=== PATIENT | male | born 1960 | race Caucasian/White ===

== ENCOUNTER → 2022-02-11 08:40 | Outpatient (BNVA) | payer OTHER, SELFPAY | PROVIDERS: Visit Provider Physician Assistant Medical | DX: M23.92 Unspecified internal derangement of left knee (principal) | CPT/HCPCS: 73564; 99203 ==

== ENCOUNTER → 2022-02-21 13:08 | Outpatient (BNVA) | payer OTHER, SELFPAY | PROVIDERS: Visit Provider Physician Assistant Medical | DX: M23.92 Unspecified internal derangement of left knee (principal); M25.562 Pain in left knee | CPT/HCPCS: 99213 ==

== ENCOUNTER → 2022-03-11 14:56 | Outpatient (BNVA) | payer OTHER, SELFPAY | PROVIDERS: Visit Provider Physician Assistant Medical | DX: M23.92 Unspecified internal derangement of left knee (principal) | CPT/HCPCS: 99213 ==

== ENCOUNTER 2022-03-11 15:00 | Outpatient (RCR) | payer OTHER, BC, SELFPAY ==
--- NOTE | 2022-02-14 16:08 | MHC.PT.EP ---
[facility] [place] Office [place] Office [place] Office [address] Eduard Turner [address] [phone] F: [phone] F: [phone] F: [phone] F: [phone] Physical Therapy Plan of Care Date of Evaluation: Date of Surgery: N/A Diagnosis: L knee internal derangement (RC) Assessment: pt is a 62 y/o female presenting to physical therapy w/ referring diagnosis of L knee derangement. pt's signs and symptoms consistent w/ MCL sprain and quadriceps tendon sprain. Impairments include pain, decreased range of motion, decreased strength, impaired functional mobility, impaired postural awareness, and altered ambulation mechanics. pt is a good candidate for skilled PT due to age, potential remediation of impairments, typical disease/condition progression and prognosis, comorbidities, and motivation. pt would benefit from skilled PT intervention to provide a tailored strengthening and stretching exercise program, functional training, gait training, postural re-training, neuromuscular re-education, modalities as needed for pain, equipment safety demonstration. Frequency and Duration: The patient will be seen 2x/wk for 5 wks Short Term Goals: pt will be I w/ HEP to promote self-management of condition. pt will improve L knee flexion by 10 degrees to promote ease in kneeling at work. 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 Treatment Plan: Modalities to reduce pain, spasms and effusion. Manual therapy to restore motion and function. Therapeutic exercise to improve strength and flexibility. Neuromuscular re-education for posture and balance. Therapeutic activities to return to functional activities of daily living. Electronically signed by: Ema Dunlap PT, DPT Please sign and return to therapist. Thank you for your referral.
--- NOTE | 2022-03-20 18:00 | MHC.PT.EP ---
[facility] [place] Office [place] Office [place] Office [address] Eduard Turner [address] [phone] F: [phone] F: [phone] F: [phone] F: [phone] Physical Therapy Plan of Care Date of Evaluation: Date of Surgery: N/A Diagnosis: L knee internal derangement (RC) Assessment: pt is a 62 y/o female presenting to physical therapy w/ referring diagnosis of L knee derangement. pt's signs and symptoms consistent w/ MCL sprain and quadriceps tendon sprain. Impairments include pain, decreased range of motion, decreased strength, impaired functional mobility, impaired postural awareness, and altered ambulation mechanics. pt is a good candidate for skilled PT due to age, potential remediation of impairments, typical disease/condition progression and prognosis, comorbidities, and motivation. pt would benefit from skilled PT intervention to provide a tailored strengthening and stretching exercise program, functional training, gait training, postural re-training, neuromuscular re-education, modalities as needed for pain, equipment safety demonstration. Frequency and Duration: The patient will be seen 2x/wk for 5 wks Short Term Goals: STG's Met Mcc Goals: LTG Met for improved LEFS and strength 5/5 Flex and Ext Treatment Plan: Modalities to reduce pain, spasms and effusion. Manual therapy to restore motion and function. Therapeutic exercise to improve strength and flexibility. Neuromuscular re-education for posture and balance. Therapeutic activities to return to functional activities of daily living. Electronically signed by: Ema Dunlap PT, DPT Please sign and return to therapist. Thank you for your referral.
== END 2022-03-20 18:00 | disposition home or self-care (01) ==
LOC: HO.PT 15:00
PROVIDERS: Visit Provider Physician Assistant Medical
DX: M23.92 Unspecified internal derangement of left knee (principal); M25.562 Pain in left knee
CPT/HCPCS: 97110; 97161

== ENCOUNTER 2022-04-16 09:07 | Outpatient (REF) | payer BC, SELFPAY ==
--- NOTE | ~2022-04-16 | XR_ITS ---
EXAMINATION: XR HAND, RIGHT CLINICAL INFORMATION: Right hand pain. COMPARISON: 04/02/2022 TECHNIQUE: PA, lateral, and oblique views of the right hand. FINDINGS: There appears to be a 1 mm bony density about the dorsal radial aspect of the 1st metacarpophalangeal joint consistent with small avulsion injury. No dislocation is evident. No significant soft tissue swelling is seen. I cannot tell whether this is an acute or remote injury. There is an exostosis seen about the distal 4th proximal phalanx. 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 There is some degenerative change involving the 2nd and 3rd distal interphalangeal joints. XR/XR hand RT min 3V IMPRESSION: 1 mm bony density adjacent to the first metacarpophalangeal joint which likely represents sequela of previous injury. Exostosis distal 4th proximal phalanx.
== END 2022-04-16 09:08 | disposition home or self-care (01) ==
LOC: HO.HOSX 09:07
PROVIDERS: Visit Provider Orthopaedic Surgery
DX: S60.011A Contusion of right thumb without damage to nail, initial encounter (principal); S69.91XA Unspecified injury of right wrist, hand and finger(s), initial encounter
CPT/HCPCS: 73130; 99202

== ENCOUNTER 2022-06-20 20:38 | Emergency (ER) | payer BC, SELFPAY ==
--- NOTE | ~2022-06-20 | XR_ITS ---
EXAMINATION: XR ANKLE, RIGHT CLINICAL INFORMATION: Injury COMPARISON: None TECHNIQUE: AP, lateral, and mortise views of the right ankle. FINDINGS: Mild soft tissue swelling laterally. Bones are normal anatomic alignment with no acute fracture or dislocation. No periosteal reaction or bony erosion. Degenerative changes with osteophyte formation are seen medially and there is a small calcaneal heel spur at the attachment point of the plantar aponeurosis. XR/XR ankle RT 2V IMPRESSION: Degenerative changes but no acute fracture or dislocation.
[2022-06-20 20:47] VITALS: BP 157/102; PULSE 83; RESP 16; TEMP 36.7; O2SAT 96; BMI 31.8
--- NOTE | 2022-06-20 22:25 | ED.EXTPRO ---
HPI - Extremity Problem General Chief complaint: Extremity Problem Stated complaint: Right ankle injury Time Seen by Provider: 06/20/22 22:10 Source: patient Mode of arrival: wheelchair Limitations: no limitations History of Present Illness HPI Narrative: patient comes to the emergency room complaining of right ankle pain. Patient states that he was walking on the stairs, sprain his ankle. Patient has been unable to bear weight. Patient denies any other injuries, patient on blood thinners. Related Data Home Medications Medication Instructions Recorded Confirmed No Known Home Meds 04/16/22 04/16/22 Allergies Allergy/AdvReac Type Severity Reaction Status Date / Time No Known Allergies Allergy Verified 04/16/22 16:10 Review of Systems Review of Systems: Constitutional : No Weight loss, No Fever, No Chills, No Night Sweats, No Fatigue, No Malaise ENT/Mouth : No Hearing loss, No Ear Pain, No Nasal Congestion, No Sinus Pain, No Hoarseness, No sore throat, No Rhinorrhea, No Swallowing Difficulty Eyes: No Eye Pain, No Swelling, No Redness, No Foreign Body, No Discharge, No Vision Changes Cardiovascular : No Chest Pain, No SOB, No Dyspnea on Exertion, No Orthopnea, No Edema, No Palpitations Respiratory : No Cough, No Sputum, No Wheezing, No Smoke Exposure, No Dyspnea Gastrointestinal : No Nausea, No Vomiting, No Diarrhea, No Constipation, No abdominal Pain, No Hematochezia, No Melena Genitourinary : no irregular bleeding, No Dysuria, No Urinary Frequency, No Hematuria, No Urinary Incontinence, No Urgency, No Flank Pain, No Urinary Flow Changes, No Hesitancy Musculoskeletal : Complaining of ankle pain, No Myalgias, No Joint Swelling Skin : No Skin Lesions, No rash Neuro : No Weakness, No Numbness, No Paresthesias, No Loss of Consciousness, No Dizziness, No Headache Psych : No Anxiety/Panic, No Depression, No SI/HI/AH/VH, No Social Issues, Heme/Lymph: No Bruising, No Bleeding,No Lymphadenopathy Endocrine : No Polyuria, No Polydipsia, No Temperature Intolerance [facility] Social History Social History (Updated 04/16/22 @ 16:14 by EMILE Harrsi) Patient Tobacco Use Status: Never used Tobacco Advance Directives: No Advance Directives Information Provided: No Current occupational status: employed Current occupation: [employer] Physical Exam Vital Signs: Vital Signs: Last Vital Signs Temp 98.1 F 06/20/22 20:47 Pulse 83 06/20/22 20:47 Resp 16 06/20/22 20:47 BP 157/102 H 06/20/22 20:47 Pulse Ox 96 06/20/22 20:47 O2 Del Method 06/20/22 20:47 BMI result Body Mass Index 31.8 Const: Other: Appearance: Alert. Oriented X3. No acute distress. Eyes: Pupils equal, round and reactive to light. ENT: Pharynx normal. Neck: Normal inspection. Neck supple. No lymph nodes noted. No crepitus CVS: Normal heart rate and rhythm. Pulses normal. Normal S1 and S2 Respiratory: No respiratory distress. Breath sounds normal. No Wheezing. No rales Abdomen: Soft and nontender. No rigidity. No distention. Skin: Skin warm and dry. Normal skin color. Normal skin turgor. Extremities: patient has mild edema around the lateral malleolus of the right foot, no pain to palpation on the medial malleolus. Good pedal pulses Neuro: Oriented X 3. No motor deficit. No sensory deficit. Moving all extremities. No slurred speech. CN 2 through 12 grossly intact Psych: calm, cooperative, normal affect Medical Decision Making Medical Decision Making MDM Narrative: patient's x-ray shows no fracture or dislocation. - Patient unable to bear weight at this time, patient asked if he wants crutches. Patient has his own walker at home - patient states that he feels comfortable going home with his leg is wrapped, will apply ice at home - patient has Tylenol and ibuprofen at home, states he does not require a prescription. 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 If you have any worsening or new symptoms, please return to the emergency room or call 911 Prescriptions: No Action No Known Home Meds Stand Alone Forms: Work/School Release
== END 2022-06-20 22:48 | disposition home or self-care (01) ==
PROVIDERS: Emergency Provider Emergency Medicine; PCP Physician Assistant Medical
DX: S93.401A Sprain of unspecified ligament of right ankle, initial encounter (principal); W10.9XXA Fall (on) (from) unspecified stairs and steps, initial encounter; Y93.9 Activity, unspecified; Y92.9 Unspecified place or not applicable; Y99.9 Unspecified external cause status
CPT/HCPCS: 73600; 99282; 99283

== ENCOUNTER → 2023-08-19 11:49 | Outpatient (BNVA) | payer OTHER, SELFPAY | PROVIDERS: PCP Physician Assistant Medical; Visit Provider Physician Assistant Medical | DX: S53.491A Other sprain of right elbow, initial encounter (principal); X50.3XXA Overexertion from repetitive movements, initial encounter | CPT/HCPCS: 99203 ==

== ENCOUNTER 2024-03-02 09:10 | Outpatient (REF) | payer BC, SELFPAY ==
[2024-03-02 14:22] LABS: Influenza A PCR NEGATIVE (Negative); Influenza B PCR NEGATIVE (Negative); Resp Syncy Virus RNA Qual PCR NEGATIVE (Negative); SARS COV2 PCR INHOUSE NEGATIVE (Negative)
== END 2024-03-02 09:11 | disposition home or self-care (01) ==
LOC: HO.LNP 09:10
PROVIDERS: PCP Physician Assistant Medical; Visit Provider Nurse Practitioner Family
DX: J06.9 Acute upper respiratory infection, unspecified (principal)
CPT/HCPCS: 0241U

== ENCOUNTER 2024-03-02 09:10 | Outpatient (AMB) | payer BC, SELFPAY ==
--- NOTE | 2024-03-02 10:21 | AM.OFFWIN_ITS ---
Intake Vital Signs 03/02/24 10:37 Weight 242 lb BP 140/84 H Blood Pressure Location Lt brachial Position Sitting Pulse 76 Pulse Source Pulse Oximeter Temp 98.3 F Temp Source Oral Pulse Oximetry (%) 98 Oxygen Delivery Method Room Air Intake Visit Reasons: EP-cough [phone] Intake Note: Patient here for cough that has been present for 1 week. Patient Tobacco Use Status: Never used Tobacco Allergies No Known Allergies Allergy (Verified 03/02/24 10:38) Do you need a note to return to daycare/school/sports/work: No HPI HPI Comments History of Present Illness Details 64 y/o male patient who presents to the walk in clinic with c/o cough since last . Denies fevers, chills, nausea or vomiting. [facility] Medical History (Updated 03/02/24 @ 10:44 by Yajaira Easton NP) Acute respiratory disease Cough in adult Social History (Updated 04/16/22 @ 16:14 by EMILE Harris) Patient Tobacco Use Status: Never used Tobacco Current occupational status: employed Current occupation: [employer] Review of Systems Const All systems reviewed & are unremarkable except as noted in HPI and below Physical Exam Vital Signs: Last Vital Signs Temp 98.3 F 03/02/24 10:37 Pulse 76 03/02/24 10:37 BP 140/84 H 03/02/24 10:37 Pulse Ox 98 03/02/24 10:37 Oxygen Delivery Method Room Air 03/02/24 10:37 Const General: cooperative, comfortable and no acute distress Nutritional Appearance: overweight Orientation/consciousness: patient oriented x3 HEENT Head: Yes normocephalic Ears: external ears normal and TM's normal bilaterally General nose exam: Normal external nose present and Nasal discharge present Face and sinus: Yes sinuses nontender Mouth: moist mucous membranes Resp Effort & Inspection: normal respiratory effort and able to speak in complete sentences Auscultation: clear to auscultation bilaterally Cardio Heart sounds: S1 normal heart sound present and S2 normal heart sound present Neuro General: patient oriented x3 Assessment & Plan Assessment & Plan (1) Cough in adult: Code(s): R05.9 - Cough, unspecified Plan: Ordered SARs OTC cold/cough remedies Rest and Hydrate well RTC if not better. (2) Acute respiratory disease: Code(s): J06.9 - Acute upper respiratory infection, unspecified Plan: Ordered SARs OTC cold/cough remedies Rest and Hydrate well RTC if not better. Orders: Orders SARS-CoV2/FLU/RSV Today R09.89 - Other specified symptoms and signs involving the circulatory and respiratory systems Medications: New acetaminophen 1,000 mg (2 x 500 mg) PO Q6H PRN 30 caps 0RF pain J06.9 - Acute upper respiratory infection, unspecified benzonatate 100 mg PO TID 60 caps 0RF J06.9 - Acute upper respiratory infection, unspecified, R05.9 - Cough, unspecified Coding Level of Care Code Est Pt Level 3 (31084) Diagnoses Cough in adult R05.9 Acute respiratory disease J06.9 Time Spent (min) 15
[2024-03-02 10:37] VITALS: BP 140/84; PULSE 76; TEMP 36.8; O2SAT 98
== END 2024-03-02 10:47 | disposition home or self-care (01) ==
PROVIDERS: PCP Physician Assistant Medical; Visit Provider Nurse Practitioner Family
DX: R05.9 Cough, unspecified (principal); J06.9 Acute upper respiratory infection, unspecified